=== PATIENT | male | born 1950 ===

== ENCOUNTER 2022-10-19 06:04 | Day surgery (SDC) | payer OTHER ==
[~2022-10-19] VITALS: Ht 182.9 cm; Wt 106.6 kg
[~2022-10-19 06:04] MED LIST: CIPRO500 MG PO; KEFLEX250 MG PO; OMEPRAZOLE20 MG PO; PERCOCET 5/3251 TAB PO; PYRIDIUM100 M1 PO; ROSUVASTATIN CAL5 MG PO; TAMS0.4C PO; ULTRACET PO
== END 2022-10-19 15:25 | disposition home or self-care (01) ==
LOC: CIR.AMB 06:04 → O/R 06:04 → SURH 06:04 → EDSTATUS 07:30 → SURH 07:30 → O/R 15:25 → CIR.AMB 15:25
PROVIDERS: ATTEND Urology
DX: R33.9 Retention of urine, unspecified (principal); N20.0 Calculus of kidney; N40.0 Benign prostatic hyperplasia without lower urinary tract symptoms; R73.03 Prediabetes; Z20.822 Contact with and (suspected) exposure to COVID-19